=== PATIENT | male | born 1990 | race American Indian/Alaskan Native ===

== ENCOUNTER 2019-08-22 10:52 | Emergency (ER) | payer OTHER ==
[~2019-08-22] VITALS: Ht 190.5 cm; Wt 72.6 kg
[~2019-08-22 10:52] MED LIST: RXCLIN PO
[2019-08-22 11:58] LABS: Influenza A Negative (NEGATIVE); Influenza B Negative (NEGATIVE)
[2019-08-22] MEDS ORDERED: Zithromax250 MG PO (14:27)
[2019-08-22] MEDS ORDERED: ALBU90OI INH (14:27)
[2019-08-22] MEDS ORDERED: BENZ100A PO (14:27)
== END 2019-08-22 14:49 | disposition home or self-care (01) ==
LOC: ER 10:52
PROVIDERS: Physician Assistant
DX: J18.9 Pneumonia, unspecified organism (principal)
CPT/HCPCS: 71046; 87804; 99283-25

== ENCOUNTER 2022-04-03 14:15 | Emergency (ER) | payer OTHER ==
[~2022-04-03] VITALS: Ht 193 cm; Wt 81.7 kg
[~2022-04-03 14:15] MED LIST changes: +ALBU90OI INH; +BENZ100A PO; +Zithromax250 MG PO
== END 2022-04-03 16:05 | disposition home or self-care (01) ==
LOC: ER 14:15
DX: S83.91XA Sprain of unspecified site of right knee, initial encounter (principal); Z79.899 Other long term (current) drug therapy; X58.XXXA Exposure to other specified factors, initial encounter
CPT/HCPCS: 73562-RT

== ENCOUNTER 2022-08-07 07:55 | Day surgery (SDC) | payer OTHER ==
[~2022-08-07] VITALS: Ht 190.5 cm; Wt 75.6 kg
--- NOTE | 2022-08-07 10:14 | NUR ---
08/07/22 1014 JORDI GLOVER 0.1MG OF EPI ADDED TO 20MLS OF ROPIVACAINE 0.5% TO CREATE A LOCAL SOLUTION OF ROPIVACAINE 0.5% WITH EPI 1:200,000. LOCAL POURED ONTO STERILE FIELD FOR USE DURING CASE.
--- NOTE | 2022-08-07 13:04 | NUR ---
08/07/22 1304 CHELSEA SLADE HANDOFF PT CARE TO [facility].
== END 2022-08-07 13:28 | disposition home or self-care (01) ==
LOC: ORSCSDS 07:55
PROVIDERS: Orthopaedic Surgery
PROC: 0SQC4ZZ Repair Right Knee Joint, Percutaneous Endoscopic Approach (ICD-10-PCS; principal; 2022-08-07 09:15)
DX: S83.231A Complex tear of medial meniscus, current injury, right knee, initial encounter (principal)
CPT/HCPCS: A9270; C1713; J0690; J1100; J1885; J2250; J2405; J2704; J2795; J3010; J7120